=== PATIENT | female | born 1955 | race Caucasian/White ===

== ENCOUNTER → 2020-03-30 | Outpatient (CLI) | payer BC, OTHER ==
[~2020-03-30] MED LIST: CELE100C PO; LEVO50TA64 PO; [UNRECOGNIZED DRUG - OTHER] PO; citracal PO
== END | disposition home or self-care (01) ==
LOC: STAR 14:40
PROVIDERS: ATTEND Otolaryngology
DX: Z01.818 Encounter for other preprocedural examination (principal); J32.0 Chronic maxillary sinusitis; Z20.828 Contact with and (suspected) exposure to other viral communicable diseases
CPT/HCPCS: 87635; 93005

== ENCOUNTER 2020-04-05 05:37 | Day surgery (SDC) | payer BC, OTHER ==
[~2020-04-05] VITALS: Ht 160 cm; Wt 53.3 kg
[2020-04-05 06:11] VITALS: BP 92/50
[2020-04-05] MEDS ORDERED: EPINEPHRINE TOPICAL SOLN 1 MG/ML, 30ML ONE (06:12)
[2020-04-05] MEDS ORDERED: FLUORESCEIN SODIUM 500 MG/5 ML ONE (06:12)
[2020-04-05] MEDS ORDERED: EPINEPHRINE 1 MG/ML, 1ML ONE (06:12)
[2020-04-05] MEDS ORDERED: BACITRACIN OINT 500U/GM, 15 GM ONE (06:12)
[2020-04-05] MEDS ORDERED: OXYMETAZOLINE NASAL SPRAY 0.05%,30ML ONE (06:12)
[2020-04-05] MEDS ORDERED: LIDOCAINE/PF 1%, 30ML ONE (06:12)
[2020-04-05] MEDS ORDERED: BACITRACIN 50,000 UNIT ONE (06:12)
[2020-04-05] MEDS ORDERED: FENTANYL PF 250 MCG/5ML ONE (06:26)
[2020-04-05] MEDS ORDERED: MIDAZOLAM 1 MG/ML, 2ML ONE (06:26)
[2020-04-05] MEDS ORDERED: CHLORHEXIDINE 15 ML UDC MM ONE (06:30)
[2020-04-05] MEDS ORDERED: LACTATED RINGERS 1,000 ML IV SCH (06:30)
[2020-04-05] MEDS ORDERED: MEPERIDINE/PF 25MG/0.5ML IVPush PRN (07:00)
[2020-04-05] MEDS ORDERED: DIPHENHYDRAMINE 50 MG/ML, 1ML IM PRN ×2 (07:00)
[2020-04-05] MEDS ORDERED: morphine SULFATE 10 MG/ML, 1ML IVPush PRN (07:00)
[2020-04-05] MEDS ORDERED: OXYcodone 5 MG/5 ML ORAL.SOL UDC PO PRN (07:00)
[2020-04-05] MEDS ORDERED: HYDROcodone/APAP 7.5-325MG/15ML UDC PO PRN (07:00)
[2020-04-05] MEDS ORDERED: ACETAMINOPHEN 325 MG TABLET PO PRN (07:00)
[2020-04-05] MEDS ORDERED: HALOPERIDOL 5 MG/ML IV PRN (07:00)
[2020-04-05] MEDS ORDERED: CLINDAMYCIN 150 MG/ML, 6ML ONE (07:47)
[2020-04-05] MEDS ORDERED: EPHEDRINE 50 MG/ML, 1ML ONE (07:58)
[2020-04-05] MEDS ORDERED: NEOSTIGMINE 1 MG/ML, 10ML ONE (08:59)
[2020-04-05] MEDS ORDERED: GLYCOPYRROLATE 0.2MG/1ML, 5ML ONE (08:59)
[2020-04-05] MEDS ORDERED: PROPOFOL 10 MG/ML, 20ML ONE (08:59)
[2020-04-05] MEDS ORDERED: ONDANSETRON 2MG/ML, 2ML ONE ×2 (08:59→12:15)
[2020-04-05] MEDS ORDERED: DEXAMETHASONE 4 MG/ML, 1ML ONE (08:59)
[2020-04-05] MEDS ORDERED: ROCURONIUM 10MG/ML,5ML ONE (08:59)
[2020-04-05] MEDS ORDERED: PROMETHAZINE 25 MG/ML, 1ML ONE (09:28)
[2020-04-05] MEDS ORDERED: FENTANYL PF 100 MCG/2ML ONE (09:28)
[2020-04-05] MEDS: PROMETHAZINE 25 MG/ML, 1ML IVPush PRN ×2 (09:30→10:00)
[2020-04-05] MEDS: FENTANYL PF 100 MCG/2ML IV PRN ×2 (09:33→10:17)
[2020-04-05] MEDS: HYDROmorphone 1 MG/ML, 1ML INJ IVPush PRN ×2 (11:02→12:16)
[2020-04-05] MEDS ORDERED: ONDANSETRON 2MG/ML, 2ML IVPush PRN (12:30)
== END 2020-04-05 13:20 | disposition home or self-care (01) ==
LOC: OUT 05:37
PROVIDERS: ATTEND Otolaryngology
DX: J32.2 Chronic ethmoidal sinusitis (principal); J32.1 Chronic frontal sinusitis; J32.0 Chronic maxillary sinusitis; B44.89 Other forms of aspergillosis; E03.9 Hypothyroidism, unspecified; Z79.890 Hormone replacement therapy; Z79.899 Other long term (current) drug therapy; Z88.5 Allergy status to narcotic agent; Z88.8 Allergy status to other drugs, medicaments and biological substances
CPT/HCPCS: 31253; 31257; 31267; 87070; 87075; 87077; 87102; 87186; 87205; 88304; 88307; 88311; C9122; J0171; J1100; J1170; J2250; J2405; J2550; J2704; J2710; J3010; J7120

== ENCOUNTER 2020-04-12 08:13 | Day surgery (SDC) | payer BC, OTHER ==
[~2020-04-12] VITALS: Ht 161.3 cm; Wt 54.2 kg
[2020-04-12 08:46] VITALS: BP 113/70
[2020-04-12 08:49] VITALS: BP 113/70
[2020-04-12] MEDS ORDERED: OXYMETAZOLINE NASAL SPRAY 0.05%,30ML NAS ONE (09:35)
== END 2020-04-12 09:49 | disposition home or self-care (01) ==
LOC: OUT 08:13
PROVIDERS: ATTEND Otolaryngology
DX: J32.0 Chronic maxillary sinusitis (principal); J32.2 Chronic ethmoidal sinusitis; J32.1 Chronic frontal sinusitis; Z20.822 Contact with and (suspected) exposure to COVID-19
CPT/HCPCS: 87635